=== PATIENT | female | born 1970 | race American Indian/Alaskan Native ===

== ENCOUNTER 2018-03-02 06:13 | Emergency (ER) | payer SELFPAY ==
--- NOTE | 2018-03-02 07:08 | XRay Report ---
FINAL REPORT EXAM: XR CHEST ROUTINE 2V HISTORY: SOB/Dizziness TECHNIQUE: PA and lateral chest radiographs PRIORS: None. FINDINGS: No mediastinal shift. Cardiac silhouette is not enlarged. No pneumothorax, effusion, or focal pulmon richie opacity. No acute skeletal finding. IMPRESSION: No focal pulmonary opacity.
[2018-03-02 07:56] LABS: BUN/Creatinine Ratio 10; Blood Urea Nitrogen 7 mg/dL (7-17); Calcium 9.4 mg/dL (8.4-10.2); Hemolysis Index 72
[2018-03-02 08:24] LABS: Basophils % (Auto) 0.5 % (0.0-1.8); Eosinophils # (Auto) 0.2 K/mm3 (0.0-0.4); Lymphocytes # (Auto) 2.5 K/mm3 (1.2-5.4); Lymphocytes % (Auto) 27.8 % (13.4-35.0); Mean Corpuscular HGB Conc 30 % (30-34); Mean Corpuscular Volume 71 fl (79-97); Monocytes # (Auto) 0.9 K/mm3 (0.0-0.8); Monocytes % (Auto) 9.8 % (0.0-7.3); Platelet Count 378 K/mm3 (140-440); Red Blood Count 4.72 M/mm3 (3.65-5.03); Red Cell Distribution Width 18.2 % (13.2-15.2)
[2018-03-02 08:32] LABS: Hematocrit 33.6 % (30.3-42.9); Hemoglobin 10.1 gm/dl (10.1-14.3)
[2018-03-02] MEDS ORDERED: IBUPROFEN PO ONE (08:52)
[2018-03-02] MEDS ORDERED: TYLENOL PO ONE (08:52)
--- NOTE | 2018-03-02 08:53 | Emergency Department Report ---
ED General Adult HPI - General Chief complaint: Dizziness Stated complaint: DIZZINESS Time Seen by Provider: 03/02/18 07:47 Source: patient Mode of arrival: Ambulatory Limitations: No Limitations - History of Present Illness Initial comments: This is a pleasant 47-year-old female who is not known to this provider previously. The patient does not have a local primary care doctor. She reports that she is not . She reports that she does not take oral contraceptives, that she has not delivered given within the past 6 weeks, and she denies DVT, pulmonary embolus risk factors. The patient presents to the ER today with a complaint of nontraumatic bilateral multiple fingertip tingling, 2 weeks. This is constant, only on the fingerti ps, does not radiate anywhere, does not appear to have exacerbating or liver factors. The patient describes nonspecific diffuse muscular discomfort, including bilateral trapezius, bilateral paracervical muscles, and on her feet. The patient reports that she does not get good sleep, and reports that she feels like she falls asleep occasionally during the day. She denies chest pain, but admits to shortness of breath, feeling fatigued, and malaise. This is been going on for weeks to months. The patient has not had a formal sleep study. The patient denies chest pain, abdominal pain, vomiting, urinary symptoms. Her symptoms have been going on for weeks to months. -: Gradual Location: left, right, upper extremity, lower extremity Severity scale (0 -10): 0 Quality: other Consistency: other Improves with: other Worsens with: other Associated Symptoms: headaches, loss of appetite, malaise, shortness of breath, weakness. denies: confusion, chest pain, cough, diaphoresis, fever/chills, nausea/vomiting, rash, seizure, syncope - Related Data Previous Rx's Medication Instructions Recorded Last Taken Type Acetaminophen [Tylenol Arthritis] 650 mg PO Q6HR PRN #30 tablet.er 03/02/18 Unknown Rx Ibuprofen [Motrin] 600 mg PO Q8H PRN #30 tablet 03/02/18 Unknown Rx Allergies Allergy/AdvReac Type Severity Reaction Status Date / Time No Known Allergies Allergy Unverified 03/02/18 06:31 ED Review of Systems ROS: Stated complaint: DIZZINESS Other details as noted in HPI Constitutional: malaise. denies: fever Eyes: denies: vision change ENT: denies: epistaxis Respiratory: denies: wheezing Cardiovascular: denies: chest pain Gastrointestinal: denies: nausea, vomiting Genitourinary: denies: dysuria Musculoskeletal: arthralgia, myalgia Skin: denies: lesions Neurological: headache. denies: abnormal gait, vertigo Psychiatric: anxiety ED Past Medical Hx - Past Medical History Previous Medical History?: No - Surgical History Past Surgical History?: Yes Additional Surgical History: Tubaligation, tonsilectomy - Social History Smoking Status: Never Smoker Substance Use Type: None - Medications Home Medications: Home Medications Medication Instructions Recorded Confirmed Last Taken Type Acetaminophen [Tylenol Arthritis] 650 mg PO Q6HR PRN #30 tablet.er 03/02/18 Unknown Rx Ibuprofen [Motrin] 600 mg PO Q8H PRN #30 tablet 03/02/18 Unknown Rx ED Physical Exam - General Limitations: No Limitations General appearance: alert, in no apparent distress - Head Head exam: Present: atraumatic, normocephalic - Eye Eye exam: Present: normal appearance, PERRL, EOMI, other (visual acuity intact to finger counting, color perception, reading at a close distance). Absent: nystagmus - ENT ENT exam: Present: normal exam, normal orophraynx, mucous membranes moist, normal external ear exam - Neck Neck exam: Present: normal inspection, full ROM, other (there is no midline cervical spine tenderness. There is reproducible trapezius and paracervical tenderness). Absent: meningismus - Respiratory Respiratory exam: Present: normal lung sounds bilaterally. Absent: respiratory distress - Cardiovascular Cardiovascular Exam: Present: regular rate, normal rhythm, normal heart sounds. Absent: bradycardia, tachycardia, irregular rhythm, systolic murmur, diastolic murmur, rubs, gallop - GI/Abdominal GI/Abdominal exam: Present: soft. Absent: distended, tenderness, guarding, r ebound, rigid, pulsatile mass - Extremities Exam Extremities exam: Present: normal inspection, full ROM, other (2+ pulses noted in the bilateral upper, lower extremities. Compartments soft. No long bony tenderness. The pelvis is stable.). Absent: pedal edema, joint swelling, calf tenderness - Back Exam Back exam: Present: normal inspection, full ROM. Absent: tenderness, CVA tenderness (R), CVA tenderness (L), vertebral tenderness - Neurological Exam Neurological exam: Present: alert, oriented X3, CN II-XII intact, normal gait, other (Extraocular movements intact. Tongue midline. No facial droop. Facial sensation intact to light touch in the V1, V2, V3 distribution bilaterally. 5 and 5 strength in 4 extremities.. Sensation is intact to light touch in 4 extremities.). Absent: motor sensory deficit (sensation intact to light touch, pinch, proprioception, upper, lower extremities) - Psychiatric Psychiatric exam: Present: normal affect, normal mood - Skin Skin exam: Present: warm, dry, intact, normal color. Absent: rash ED Course Vital Signs 03/02/18 03/02/18 06:31 07:48 Temperature 97.5 F L Pulse Rate 72 57 L Respiratory 16 16 Rate Blood Pressure 142/87 Blood Pressure 126/69 [Left] O2 Sat by Pulse 100 99 Oximetry ED Medical Decision Making - Lab Data Result diagrams: 03/02/18 07:30 03/02/18 07:26 Vital Signs 03/02/18 03/02/18 06:31 07:48 Temperature 97.5 F L Pulse Rate 72 57 L Respiratory 16 16 Rate Blood Pressure 142/87 Blood Pressure 126/69 [Left] O2 Sat by Pulse 100 99 Oximetry Lab Results 03/02/18 03/02/18 Range/Units 07:26 07:30 WBC 8.8 (4.5-11.0) K/mm3 RBC 4.72 (3.65-5.03) M/mm3 Hgb 10.1 (10.1-14.3) gm/dl Hct 33.6 (30.3-42.9) % MCV 71 L (79-97) fl MCH 22 L (28-32) pg MCHC 30 (30-34) % RDW 18.2 H (13.2-15.2) % Plt Count 378 (140-440) K/mm3 Lymph % (Auto) 27.8 (13.4-35.0) % [place] % (Auto) 9.8 H (0.0-7.3) % Eos % (Auto) 2.0 (0.0-4.3) % Baso % (Auto) 0.5 (0.0-1.8) % Lymph # 2.5 (1.2-5.4) K/mm3 [place] # 0.9 H (0.0-0.8) K/mm3 Eos # 0.2 (0.0-0.4) K/mm3 Baso # 0.0 (0.0-0.1) K/mm3 Seg Neutrophils % 59.9 (40.0-70.0) % Seg Neutrophils # 5.3 (1.8-7.7) K/mm3 Sodium 137 (137-145) mmol/L Potassium 4.6 (3.6-5.0) mmol/L Chloride 101.2 (98-107) mmol/L Carbon Dioxide 24 (22-30) mmol/L Anion Gap 16 mmol/L BUN 7 (7-17) mg/dL Creatinine 0.7 (0.7-1.2) mg/dL Estimated GFR > 60 ml/min BUN/Creatinine Ratio 10 % Glucose 95 (65-100) mg/dL Calcium 9.4 (8.4-10.2) mg/dL - EKG Data -: EKG Interpreted by [facility] EKG shows normal: sinus rhythm, axis, intervals, QRS complexes, ST-T waves - EKG Data When compared to previous EKG there are: previous EKG unavailable Interpretation: normal EKG - Medical Decision Making Differential diagnosis, including but not limited to: Nonspecific myalgias, peripheral neuropathy, sleep apnea Assessment and plan: 47-year-old female who reports no pulmonary embolus or DVT risk factors, low risk by well's criteria, perc negative with nonspecific peripheral sensory dysesthesias, with no focal pulmonary findings, no tachycardia, no hypoxemia. EKG morphologically unremarkable, neurologic examination unremarkable, as ago examination unremarkable, laboratory studies unremarkable, may have a component of undiagnosed obstructive sleep apnea. Counseled the patient to modify diet and lifestyle, pursue weight loss strategies, improved dietary intake, and to follow up with outpatient primary care doctor. May have undiagnosed sleep apnea, may have a component of fibromya lgia. Given that symptoms have been present for weeks, and the aforementioned findings, the patient does not appear to have an objectively demonstrated decompensation at this time, there does not appear to be an emergent medical condition at this time, the patient is medically suitable to follow up with outpatient primary care doctor and/or sleep specialist. Critical care attestation.: If time is entered above; I have spent that time in minutes in the direct care of this critically ill patient, excluding procedure time. ED Disposition Clinical Impression: Bilateral finger numbness Disposition: DC-01 TO HOME OR SELFCARE Is pt being admited?: No Does the pt Need Aspirin: No Condition: Stable Instructions: Snoring (ED), Leg Cramps (ED) Additional Instructions: As we discussed, patient may have undiagnosed sleep apnea. Sleep apnea is a condition with the patient will stop breathing during sleep. The single most effective intervention for this would be weight loss. Patient should participate in physical activity as she can tolerate, and attempts physical activity 3-4 days per week as tolerated. In addition, patient would benefit from diet and last modification, including modification of what the patient consumes. I recommend the patient consumed fruits, fibers, green leafy vegetables, and discontinue consumption of soda, sugary drinks, simple carbohydrates such as bread, starches. Follow-up with the primary care doctor within the next month. Follow up with a sleep specialist within the next month. Dr. Humphries is a local sleep specialist Please return to the ER right away with new pain, worsened pain, migration of pain, productive vomiting, change in mental status, confusion, inability to speak, inability to breathe. Prescriptions: Acetaminophen [Tylenol Arthritis] 650 mg PO Q6HR PRN #30 tablet.er PRN Reason: Pain Ibuprofen [Motrin] 600 mg PO Q8H PRN #30 tablet PRN Reason: Pain Referrals: EVON HUMPHRIES MD [Staff Physician] - 3-5 Days [facility] [Provider Group] - 3-5 Days
[2018-03-02 09:55] VITALS: BP 137/84
== END 2018-03-02 09:54 | disposition home or self-care (01) ==
LOC: ED 06:13
DX: R20.2 Paresthesia of skin (principal); R51 Headache; R63.0 Anorexia
CPT/HCPCS: 36415; 71046; 80048; 85025; 93005; 93010

== ENCOUNTER 2018-05-19 11:00 | Emergency (ER) | payer SELFPAY ==
--- NOTE | 2018-05-19 11:12 | Emergency Department Report ---
Blank Doc - Documentation Documentation: 47 y o female presents to Ed with elevated pressure with headaches, states no diagnosis but the past 2 weeks her BP has been elevated and highest as 181/90 basic labs ordered needs PCP referal for BP managment ACC jordynal
[2018-05-19] MEDS ORDERED: TORADOL IV ONE (11:38)
[2018-05-19] MEDS ORDERED: NORMODYNE IV ONE (11:38)
[2018-05-19 11:45] LABS: Basophils # (Auto) 0.1 K/mm3 (0.0-0.1); Basophils % (Auto) 0.8 % (0.0-1.8); Eosinophils # (Auto) 0.1 K/mm3 (0.0-0.4); Eosinophils % (Auto) 1.9 % (0.0-4.3); Hematocrit 31.6 % (30.3-42.9); Hemoglobin 9.7 gm/dl (10.1-14.3); Lymphocytes # (Auto) 1.8 K/mm3 (1.2-5.4); Lymphocytes % (Auto) 27.4 % (13.4-35.0); Mean Corpuscular HGB Conc 31 % (30-34); Mean Corpuscular Volume 71 fl (79-97); Monocytes # (Auto) 0.7 K/mm3 (0.0-0.8); Monocytes % (Auto) 10.8 % (0.0-7.3); Platelet Count 350 K/mm3 (140-440); Red Blood Count 4.46 M/mm3 (3.65-5.03); Red Cell Distribution Width 17.9 % (13.2-15.2)
[2018-05-19 11:57] LABS: BUN/Creatinine Ratio 9; Blood Urea Nitrogen 6 mg/dL (7-17); Calcium 9.3 mg/dL (8.4-10.2); Hemolysis Index 0
[2018-05-19 12:16] VITALS: BP 106/79
--- NOTE | 2018-05-19 12:24 | Emergency Department Report ---
ED General Adult HPI - General Chief complaint: High BP Stated complaint: BP HIGH Time Seen by Provider: 05/19/18 11:07 Source: patient Mode of arrival: Ambulatory Limitations: No Limitations - History of Present Illness Initial comments: Patient is a 47-year-old [place] female who is complaining of 2 weeks of headache. Patient's has a history of hypertension and is been noncompliant with her meds. Patient states her blood pressure last 2 weeks has been between 150 170 systolic. Patient states she has blurred vision and squeezing throbbing headache is diffuse. Patient denies any nausea vomiting chest pain shortness of breath or focal or neurological deficit. Patient states the headache has been constant for the last 2 weeks. Severity scale (0 -10): 6 - Related Data Previous Rx's Medication Instructions Recorded Last Taken Type Acetaminophen [Tylenol Arthritis] 650 mg PO Q6HR PRN #30 tablet.er 03/02/18 Unknown Rx Ibuprofen [Motrin] 600 mg PO Q8H PRN #30 tablet 03/02/18 Unknown Rx Amlodipine Besylate [Norvasc] 5 mg PO DAILY #30 tablet 05/19/18 Unknown Rx Amoxicillin/Potassium Clav 1 each PO BID #14 tablet 05/19/18 Unknown Rx [Augmentin 875-125 Tablet] Fluticasone [Flonase] 1 spray NS QDAY #1 bottle 05/19/18 Unknown Rx Ibuprofen [Motrin] 600 mg PO Q8H PRN #20 tablet 05/19/18 Unknown Rx traMADol [Ultram] 50 mg PO Q6HR PRN #10 tablet 05/19/18 Unknown Rx Allergies Allergy/AdvReac Type Severity Reaction Status Date / Time No Known Allergies Allergy Verified 05/19/18 11:06 ED Review of Systems ROS: Stated complaint: BP HIGH Other details as noted in HPI Comment: All other systems reviewed and negative ED Past Medical Hx - Past Medical History Previous Medical History?: No - Surgical History Additional Surgical History: Tubaligation, tonsilectomy - Social History Smoking Status: Never Smoker Substance Use Type: None - Medications Home Medications: Home Medications Medication Instructions Recorded Confirmed Last Taken Type Acetaminophen [Tylenol Arthritis] 650 mg PO Q6HR PRN #30 tablet.er 03/02/18 Unknown Rx Ibuprofen [Motrin] 600 mg PO Q8H PRN #30 tablet 03/02/18 Unknown Rx Amlodipine Besylate [Norvasc] 5 mg PO DAILY #30 tablet 05/19/18 Unknown Rx Amoxicillin/Potassium Clav 1 each PO BID #14 tablet 05/19/18 Unknown Rx [Augmentin 875-125 Tablet] Fluticasone [Flonase] 1 spray NS QDAY #1 bottle 05/19/18 Unknown Rx Ibuprofen [Motrin] 600 mg PO Q8H PRN #20 tablet 05/19/18 Unknown Rx traMADol [Ultram] 50 mg PO Q6HR PRN #10 tablet 05/19/18 Unknown Rx ED Physical Exam - General Limitations: No Limitations General appearance: alert, in no apparent distress - Head Head exam: Present: atraumatic, normocephalic - Eye Eye exam: Present: normal appearance - ENT ENT exam: Present: mucous membranes moist - Neck Neck exam: Present: normal inspection - Respiratory Respiratory exam: Present: normal lung sounds bilaterally. Absent: respiratory distress, wheezes, rales, rhonchi - Cardiovascular Cardiovascular Exam: Present: regular rate, normal rhythm. Absent: systolic murmur, diastolic murmur, rubs, gallop - GI/Abdominal GI/Abdominal exam: Present: soft, normal bowel sounds. Absent: distended, tenderness, guarding, rebound - Extremities Exam Extremities exam: Present: normal inspection - Back Exam Back exam: Present: normal inspection - Neurological Exam Neurological exam: Present: alert, oriented X3 - Psychiatric Psychiatric exam: Present: normal affect, normal mood - Skin Skin exam: Present: warm, dry, intact, normal color. Absent: rash ED Course Vital Signs 05/19/18 05/19/18 05/19/18 11:06 12:14 12:15 Temperature 97.9 F Pulse Rate 94 H 67 Respiratory 16 18 Rate Blood Pressure 160/94 106/79 O2 Sat by Pulse 100 Oximetry 05/19/18 12:45 Temperature Pulse Rate Respiratory 18 Rate Blood Pressure O2 Sat by Pulse Oximetry ED Medical Decision Making - Lab Data Result diagrams: 05/19/18 11:35 05/19/18 11:35 Lab Results 05/19/18 05/19/18 Range/Units 11:35 11:35 WBC 6.5 (4.5-11.0) K/mm3 RBC 4.46 (3.65-5.03) M/mm3 Hgb 9.7 L (10.1-14.3) gm/dl Hct 31.6 (30.3-42.9) % MCV 71 L (79-97) fl MCH 22 L (28-32) pg MCHC 31 (30-34) % RDW 17.9 H (13.2-15.2) % Plt Count 350 (140-440) K/mm3 Lymph % (Auto) 27.4 (13.4-35.0) % [place] % (Auto) 10.8 H (0.0-7.3) % Eos % (Auto) 1.9 (0.0-4.3) % Baso % (Auto) 0.8 (0.0-1.8) % Lymph # 1.8 (1.2-5.4) K/mm3 [place] # 0.7 (0.0-0.8) K/mm3 Eos # 0.1 (0.0-0.4) K/mm3 Baso # 0.1 (0.0-0.1) K/mm3 Seg Neutrophils % 59.1 (40.0-70.0) % Seg Neutrophils # 3.8 (1.8-7.7) K/mm3 Sodium 141 (137-145) mmol/L Potassium 4.2 (3.6-5.0) mmol/L Chloride 102.6 (98-107) mmol/L Carbon Dioxide 27 (22-30) mmol/L Anion Gap 16 mmol/L BUN 6 L (7-17) mg/dL Creatinine 0.7 (0.7-1.2) mg/dL Estimated GFR > 60 ml/min BUN/Creatinine Ratio 9 % Glucose 94 (65-100) mg/dL Calcium 9.3 (8.4-10.2) mg/dL Troponin T < 0.010 (0.00-0.029) ng/mL - Radiology Data [facility] [address] [place] [address] Cat Scan Report Signed Patient: IAM BERRY MR#: [id number] : 1970 Acct:[id number] Age/Sex: 47 / F ADM Date: 05/19/18 Loc: ED Attending Dr: Ordering Physician: ESPERANZA DONNELLY MD Date of Service: 05/19/18 Procedure(s): CT head/brain wo con Accession Number(s): [id number] cc: ESPERANZA DONNELLY MD PROCEDURE: CT HEAD/BRAIN WO CON TECHNIQUE: Computerized tomography of the head was performed without contrast material. Coronal and sagittal reformatted images were provided. CT DOSE LENGTH PRODUCT: 1407.79 mGy-cm. HISTORY: Hypertension. Headache. COMPARISONS: None currently available. FINDINGS: There is no evidence for acute ischemia. There is no hemorrhage. There is no midline shift. There is no hydrocephalus. There is no mass. Age appropriate wilson-white matter attenuation is noted. There is no calvarial fracture. The temporal bones demonstrate aerated mastoid air cells. The middle ears appear unremarkable. Partially calcified and partially imaged lesion in the right maxillary sinus is indeterminate. Globes are intact. IMPRESSION: * No acute intracranial findings. * Nonspecific lesion in the right maxillary sinus. Differential diagnosis does include inspissated mucus. This document is electronically signed by Germán Flood MD., May 19 2018 01:59:59 PM ET Transcribed By: TYM Dictated By: GERMÁN FLOOD MD Electronically Authenticated By: GERMÁN FLOOD MD Signed Date/Time: 05/19/18 1402 DD/ 1302 TD/TT: 05/19/18 1302 - Medical Decision Making Patient was given meds for her headache. Patient also had labetalol ordered for blood pressure. Before that if this was given pressure was rechecked and had normalized. Nurses to have had a conversation with the patient regarding stress and the patient states she has several autistic children as well as a at home. Patient states she is under considerable amount of stress. This likely is contributing to her elevated blood pressure and headache. The patient does state that she does have some sinus tenderness. Patient states she is chronically congested but this is worsened lately. Patient does have evidence of systems sinus mucous on her CT. Patient be given meds for symptomatic relief. Critical care attestation.: If time is entered above; I have spent that time in minutes in the direct care of this critically ill patient, excluding procedure time. ED Disposition Clinical Impression: Hypertensive urgency, Stress, Sinus pain, Tension headache Disposition: DC-01 TO HOME OR SELFCARE Is pt being admited?: No Does the pt Need Aspirin: No Condition: Stable Instructions: Hypertension (ED), Sinusitis (ED) Referrals: SIVAN YUSUF MD [Primary Care Provider] - 3-5 Days Time of Disposition: 14:23
--- NOTE | 2018-05-19 14:02 | Cat Scan Report ---
PROCEDURE: CT HEAD/BRAIN WO CON TECHNIQUE: Computerized tomography of the head was performed without contrast material. Coronal and s agittal reformatted images were provided. CT DOSE LENGTH PRODUCT: 1407.79 mGy-cm. HISTORY: Hypertension. Headache. COMPARISONS: None currently available. FINDINGS: There is no evidence for acute ischemia. There is no hemorrhage. There is no midline shift. There is no hydrocephalus. There is no mass. Age appropriate wilson-white matter attenuation is noted. There is no calvarial fracture. The temporal bones demonstrate aerated mastoid air cells. The middle ears appear unremarkable. Partially calcified and partially imaged lesion in the right maxillary sinus is indeterminate. Globes are intact. IMPRESSION: * No acute intracranial findings. * Nonspecific lesion in the right maxillary sinus. Differential diagnosis does include inspissated m ucus. This document is electronically signed by Germán Coughlin MD., May 19 2018 01:59:59 PM ET
== END 2018-05-19 14:36 | disposition home or self-care (01) ==
LOC: ED 11:00
DX: G44.209 Tension-type headache, unspecified, not intractable (principal); I10 Essential (primary) hypertension; J34.89 Other specified disorders of nose and nasal sinuses; Z98.51 Tubal ligation status
CPT/HCPCS: 36415; 70450; 80048; 84484; 85025; 96374; 99284; J1885

== ENCOUNTER 2018-10-16 08:43 | Emergency (ER) | payer SELFPAY ==
--- NOTE | 2018-10-16 11:15 | Emergency Department Report ---
Chief Complaint: Pain General Stated Complaint: PAIN RT AXILLA Time Seen by Provider: 10/16/18 11:05 - HPI History of Present Illness: Ms. Hughes presents with tender axillary lymph node on right side. No indication of acute emergent condition. She's had normal cardiac evaluation here in the past this year. Recommended breast exams and mammograms. Medical screening exam performed. - Exam Vital Signs: Vital Signs 10/16/18 09:38 Temperature 98.5 F Pulse Rate 80 Respiratory 20 Rate Blood Pressure 121/73 O2 Sat by Pulse 98 Oximetry MSE screening note: Focused history and physical exam performed. Due to findings the following was ordered: ED Disposition for MSE Clinical Impression: Axillary lymphadenopathy Disposition: Z-07 MED SCREENING EXAM-LEFT Is pt being admited?: No Does the pt Need Aspirin: No Condition: Stable Additional Instructions: Please obtain a mammogram as discussed. You have an inflamed lymph node. Referrals: SIVAN YUSUF MD [Primary Care Provider] - 3-5 Days
[2018-10-16 11:18] VITALS: BP 121/70
== END 2018-10-16 11:17 | disposition left against medical advice (07) ==
LOC: ED 08:43
DX: R59.0 Localized enlarged lymph nodes (principal)
CPT/HCPCS: 99281

== ENCOUNTER 2019-01-30 07:17 | Emergency (ER) | payer SELFPAY ==
[2019-01-30 07:22] VITALS: BP 136/85
[2019-01-30 08:12] LABS: Basophils % (Auto) 0.2 % (0.0-1.8); Eosinophils # (Auto) 0.1 K/mm3 (0.0-0.4); Eosinophils % (Auto) 0.9 % (0.0-4.3); Hematocrit 35.3 % (30.3-42.9); Hemoglobin 10.8 gm/dl (10.1-14.3); Lymphocytes # (Auto) 0.9 K/mm3 (1.2-5.4); Lymphocytes % (Auto) 14.7 % (13.4-35.0); Mean Corpuscular HGB Conc 31 % (30-34); Mean Corpuscular Volume 73 fl (79-97); Monocytes # (Auto) 0.5 K/mm3 (0.0-0.8); Monocytes % (Auto) 8.3 % (0.0-7.3); Platelet Count 374 K/mm3 (140-440); Red Blood Count 4.87 M/mm3 (3.65-5.03)
[2019-01-30] MEDS ORDERED: LIDOCAINE VISCOUS 2% 15 ML ORAL LIQD PO ONE (08:24)
[2019-01-30] MEDS ORDERED: ALUM-MAG HYDROXIDE-SIMETHICONE 200-200-20MG/5ML ORAL LIQD 30 ML PO ONE (08:24)
[2019-01-30] MEDS ORDERED: ONDANSETRON 4 MG ODT TAB PO ONE (08:24)
[2019-01-30] MEDS ORDERED: KETOROLAC 60 MG/2 ML INJ IM ONE (08:24)
[2019-01-30] MEDS ORDERED: DICYCLOMINE 20 MG TAB PO ONE (08:24)
--- NOTE | 2019-01-30 08:24 | Emergency Department Report ---
ED Abdominal Pain HPI - General Chief Complaint: Abdominal Pain Stated Complaint: N/V/DIARRHEA/ABD PAIN Time Seen by Provider: 01/30/19 08:23 Source: patient, family Mode of arrival: Ambulatory Limitations: No Limitations - History of Present Illness Initial Comments: This is a 48-year-old female here report that she is having abdominal pain with some nausea and vomiting. She denies any diarrhea. She said this started last patient reports that she was treated by Dr. Lr for H. pylori which she finished antibiotic 01/12/2019. She says the pain is similar to the pain that she was having when she had the prior tests and further that she had H. pylori. Pain is located to the epigastric area and burning. Nothing makes it better or worse. No medication taken prior to coming to the hospital. Denies any blood in vomit. Denies any back pain or any urinary symptoms. MD Complaint: abdominal pain -: Last night Location: epigastric Radiation: none Migration to: no migration Severity: moderate Severity scale (0 -10): 6 Quality: burning Consistency: constant Improves With: nothing Worsens With: nothing Context: other (unknown) Associated Symptoms: nausea, vomiting. denies: diarrhea, fever, chills, constipation, dysuria, hematemesis, hematochezia, melena, hematuria, anorexia, syncope - Related Data LMP (females 10-50): other (tubal ligation) Previous Rx's Medication Instructions Recorded Last Taken Type Acetaminophen [Tylenol Arthritis] 650 mg PO Q6HR PRN #30 tablet.er 03/02/18 Unknown Rx Ibuprofen [Motrin] 600 mg PO Q8H PRN #30 tablet 03/02/18 Unknown Rx Amlodipine Besylate [Norvasc] 5 mg PO DAILY #30 tablet 05/19/18 Unknown Rx Amoxicillin/Potassium Clav 1 each PO BID #14 tablet 05/19/18 Unknown Rx [Augmentin 875-125 Tablet] Fluticasone [Flonase] 1 spray NS QDAY #1 bottle 05/19/18 Unknown Rx Ibuprofen [Motrin] 600 mg PO Q8H PRN #20 tablet 05/19/18 Unknown Rx traMADoL [Ultram] 50 mg PO Q6HR PRN #10 tablet 05/19/18 Unknown Rx Dicyclomine [Bentyl] 40 mg PO QID 3 Days #12 tablet 01/30/19 Unknown Rx Famotidine [Pepcid] 20 mg PO BID 6 Days #12 tablet 01/30/19 Unknown Rx Ondansetron [Zofran ODT TAB] 8 mg PO Q8HR PRN #12 tab.rapdis 01/30/19 Unknown Rx Allergies Allergy/AdvReac Type Severity Reaction Status Date / Time No Known Allergies Allergy Verified 01/30/19 07:21 ED Review of Systems ROS: Stated complaint: N/V/DIARRHEA/ABD PAIN Other details as noted in HPI Constitutional: denies: chills, fever ENT: denies: throat pain, congestion Respiratory: denies: cough, shortness of breath, wheezing Cardiovascular: denies: chest pain, palpitations, dyspnea on exertion, edema, syncope Gastrointestinal: abdominal pain, nausea, vomiting. denies: diarrhea, constipation, hematemesis, melena, hematochezia Genitourinary: denies: urgency, dysuria, frequency, hematuria, discharge, abnormal menses, dyspareunia Musculoskeletal: denies: back pain, joint swelling, arthralgia, myalgia Skin: denies: rash Neurological: denies: headache ED Past Medical Hx - Past Medical History Previous Medical History?: Yes Hx Hypertension: Yes Additional medical history: h.pylori - Surgical History Past Surgical History?: Yes Additional Surgical History: Tubaligation, tonsilectomy - Family History Family history: hypertension - Social History Smoking Status: Never Smoker Substance Use Type: None - Medications Home Medications: Home Medications Medication Instructions Recorded Confirmed Last Taken Type Acetaminophen [Tylenol Arthritis] 650 mg PO Q6HR PRN #30 tablet.er 03/02/18 Unknown Rx Ibuprofen [Motrin] 600 mg PO Q8H PRN #30 tablet 03/02/18 Unknown Rx Amlodipine Besylate [Norvasc] 5 mg PO DAILY #30 tablet 05/19/18 Unknown Rx Amoxicillin/Potassium Clav 1 each PO BID #14 tablet 05/19/18 Unknown Rx [Augmentin 875-125 Tablet] Fluticasone [Flonase] 1 spray NS QDAY #1 bottle 05/19/18 Unknown Rx Ibuprofen [Motrin] 600 mg PO Q8H PRN #20 tablet 05/19/18 Unknown Rx traMADoL [Ultram] 50 mg PO Q6HR PRN #10 tablet 05/19/18 Unknown Rx Dicyclomine [Bentyl] 40 mg PO QID 3 Days #12 tablet 01/30/19 Unknown Rx Famotidine [Pepcid] 20 mg PO BID 6 Days #12 tablet 01/30/19 Unknown Rx Ondansetron [Zofran ODT TAB] 8 mg PO Q8HR PRN #12 tab.rapdis 01/30/19 Unknown Rx ED Physical Exam - General Limitations: No Limitations General appearance: alert, in no apparent distress - Eye Eye exam: Present: normal appearance, PERRL, EOMI Pupils: Present: normal accommodation - ENT ENT exam: Present: normal exam, normal orophraynx, mucous membranes moist - Neck Neck exam: Present: normal inspection, full ROM. Absent: tenderness - Respiratory Respiratory exam: Present: normal lung sounds bilaterally. Absent: respiratory distress, chest wall tenderness - Cardiovascular Cardiovascular Exam: Present: regular rate, normal rhythm, normal heart sounds - GI/Abdominal GI/Abdominal exam: Present: soft, normal bowel sounds. Absent: distended, tenderness, guarding, rebound, rigid, organomegaly - Extremities Exam Extremities exam: Present: normal inspection, full ROM, normal capillary refill, other (no clubbing, cyanosis or edema. +2 pulses). Absent: tenderness, pedal edema, joint swelling - Back Exam Back exam: Present: normal inspection, full ROM, other (Ambulates without any difficulties). Absent: tenderness, CVA tenderness (R), CVA tenderness (L), muscle spasm, paraspinal tenderness, vertebral tenderness - Neurological Exam Neurological exam: Present: alert, oriented X3, normal gait - Psychiatric Psychiatric exam: Present: normal affect, normal mood - Skin Skin exam: Present: warm, dry, intact, normal color. Absent: rash ED Course Vital Signs 01/30/19 07:20 Temperature 98.6 F Pulse Rate 98 H Respiratory 18 Rate Blood Pressure 136/85 [Right] - Reevaluation(s) Reevaluation #1: 01/30/19 09:40 Patient given Maalox 30 mL, lidocaine 15 mL, Zofran 8 mg ODT, Toradol 30 mg IM and Bentyl 40 mg by mouth for abdominal pain and upper reevaluation abdomen her remained nontender to palpate and she says she feels a lot better and she is in no pain. Labs are stable ED Medical Decision Making - Lab Data Result diagrams: 01/30/19 07:41 01/30/19 07:41 Lab Results 01/30/19 01/30/19 01/30/19 Range/Units 07:41 07:41 07:41 WBC 5.9 (4.5-11.0) K/mm3 RBC 4.87 (3.65-5.03) M/mm3 Hgb 10.8 (10.1-14.3) gm/dl Hct 35.3 (30.3-42.9) % MCV 73 L (79-97) fl MCH 22 L (28-32) pg MCHC 31 (30-34) % RDW 18.0 H (13.2-15.2) % Plt Count 374 (140-440) K/mm3 Lymph % (Auto) 14.7 (13.4-35.0) % Beckham % (Auto) 8.3 H (0.0-7.3) % Eos % (Auto) 0.9 (0.0-4.3) % Baso % (Auto) 0.2 (0.0-1.8) % Lymph # 0.9 L (1.2-5.4) K/mm3 Beckham # 0.5 (0.0-0.8) K/mm3 Eos # 0.1 (0.0-0.4) K/mm3 Baso # 0.0 (0.0-0.1) K/mm3 Seg Neutrophils % 75.9 H (40.0-70.0) % Seg Neutrophils # 4.5 (1.8-7.7) K/mm3 Sodium 141 (137-145) mmol/L Potassium 4.0 (3.6-5.0) mmol/L Chloride 101.4 (98-107) mmol/L Carbon Dioxide 23 (22-30) mmol/L Anion Gap 21 mmol/L BUN 7 (7-17) mg/dL Creatinine 0.9 (0.7-1.2) mg/dL Estimated GFR > 60 ml/min BUN/Creatinine Ratio 8 % Glucose 101 H (65-100) mg/dL Calcium 9.8 (8.4-10.2) mg/dL Total Bilirubin 0.70 (0.1-1.2) mg/dL AST 15 (5-40) units/L ALT 13 (7-56) units/L Alkaline Phosphatase 59 (35-129) units/L Total Protein 7.6 (6.3-8.2) g/dL Albumin 4.3 (3.9-5) g/dL Albumin/Globulin Ratio 1.3 % Lipase 14 (13-60) units/L HCG, Qual (Negative) Urine Color Yellow (Yellow) Urine Turbidity Clear (Clear) Urine pH 6.0 (5.0-7.0) Ur Specific [place] 1.015 (1.003-1.030) Urine Protein 30 mg/dl (Negative) mg/dL Urine Glucose (UA) Negative (Negative) mg/dL Urine Ketones Negative (Negative) mg/dL Urine Blood Small A (Negative) Urine Nitrite Negative (Negative) Ur Reducing Substances Not Reportable Urine Bilirubin Negative (Negative) Urine Ictotest Not Reportable Urine Urobilinogen < 0.2 (<2.0) mg/dL Ur Leukocyte Esterase Negative (Negative) Urine WBC (Auto) 1.0 (0.0-6.0) /HPF Urine RBC (Auto) 3.0 (0.0-6.0) /HPF U Epithel Cells (Auto) < 1.0 (0-13.0) /HPF Urine Bacteria (Auto) 1+ (Negative) /HPF Urine Mucus 2+ /HPF 01/30/19 Range/Units 07:41 WBC (4.5-11.0) K/mm3 RBC (3.65-5.03) M/mm3 Hgb (10.1-14.3) gm/dl Hct (30.3-42.9) % MCV (79-97) fl MCH (28-32) pg MCHC (30-34) % RDW (13.2-15.2) % Plt Count (140-440) K/mm3 Lymph % (Auto) (13.4-35.0) % Beckham % (Auto) (0.0-7.3) % Eos % (Auto) (0.0-4.3) % Baso % (Auto) (0.0-1.8) % Lymph # (1.2-5.4) K/mm3 Beckham # (0.0-0.8) K/mm3 Eos # (0.0-0.4) K/mm3 Baso # (0.0-0.1) K/mm3 Seg Neutrophils % (40.0-70.0) % Seg Neutrophils # (1.8-7.7) K/mm3 Sodium (137-145) mmol/L Potassium (3.6-5.0) mmol/L Chloride (98-107) mmol/L Carbon Dioxide (22-30) mmol/L Anion Gap mmol/L BUN (7-17) mg/dL Creatinine (0.7-1.2) mg/dL Estimated GFR ml/min BUN/Creatinine Ratio % Glucose (65-100) mg/dL Calcium (8.4-10.2) mg/dL Total Bilirubin (0.1-1.2) mg/dL AST (5-40) units/L ALT (7-56) units/L Alkaline Phosphatase (35-129) units/L Total Protein (6.3-8.2) g/dL Albumin (3.9-5) g/dL Albumin/Globulin Ratio % Lipase (13-60) units/L HCG, Qual Negative (Negative) Urine Color (Yellow) Urine Turbidity (Clear) Urine pH (5.0-7.0) Ur Specific [place] (1.003-1.030) Urine Protein (Negative) mg/dL Urine Glucose (UA) (Negative) mg/dL Urine Ketones (Negative) mg/dL Urine Blood (Negative) Urine Nitrite (Negative) Ur Reducing Substances Urine Bilirubin (Negative) Urine Ictotest Urine Urobilinogen (<2.0) mg/dL Ur Leukocyte Esterase (Negative) Urine WBC (Auto) (0.0-6.0) /HPF Urine RBC (Auto) (0.0-6.0) /HPF U Epithel Cells (Auto) (0-13.0) /HPF Urine Bacteria (Auto) (Negative) /HPF Urine Mucus /HPF Urine culture sent - Medical Decision Making This is a 48-year-old female here report that she has been having abdominal pain with nausea and vomiting since yesterday. Recently treated for H. pylori by her primary care and reports that she has a same pain that she did when she had H. pylori. Patient given medication in emergency room and she is able to tolerate oral liquids. Her pain has subsided and she states that she feels better. Lab work reviewed and stable and I discussed diagnosis, treatment plan and laboratory patient's voice understanding. I discussed the patient that she needs to follow-up with her primary care in 2 days and also I will refer her to gastroenterology for further evaluation. Patient discharged home prescription for Zofran, Phenergan and Pepcid Critical care attestation.: If time is entered above; I have spent that time in minutes in the direct care of this critically ill patient, excluding procedure time. ED Disposition Clinical Impression: Abdominal pain Qualifiers: Abdominal location: epigastric Qualified Code(s): R10.13 - Epigastric pain Nausea & vomiting Qualifiers: Vomiting type: unspecified Vomiting Intractability: non-intractable Qualified Code(s): R11.2 - Nausea with vomiting, unspecified Disposition: DC-01 TO HOME OR SELFCARE Is pt being admited?: No Does the pt Need Aspirin: No Condition: Stable Instructions: Abdominal Pain (ED), Acute Nausea and Vomiting (ED) Additional Instructions: These follow-up with Dr. Lr in 2 days. Please see referral to supervisor rose grading for possible endoscope for your stomach. Increase her fluid intake and also start diet such as bananas, rice, applesauce and toast and advance as tolerated. If his symptoms worsens, return to the emergency room Take medication as prescribed Referrals: VIOLETTE LR MD [Primary Care Provider] - 02/01/19 [facility] [Provider Group] - 02/01/19 Forms: Work/School Release Form(ED)
[2019-01-30 08:34] LABS: Alanine Aminotransferase 13 units/L (7-56); Albumin 4.3 g/dL (3.9-5); BUN/Creatinine Ratio 8; Blood Urea Nitrogen 7 mg/dL (7-17); Calcium 9.8 mg/dL (8.4-10.2); Hemolysis Index 1
[2019-01-30 08:47] LABS: Bacteria,Urine 1+ /HPF (Negative); Mucus,Urine 2+ /HPF
[2019-01-30 09:14] LABS: Bilirubin,Urine Negative (Negative); Color,Urine Yellow (Yellow)
[2019-01-30 09:15] LABS: Blood,Urine Small (Negative); Urobilinogen,Urine < 0.2 mg/dL (<2.0)
== END 2019-01-30 10:45 | disposition home or self-care (01) ==
LOC: ED 07:17
DX: R10.9 Unspecified abdominal pain (principal); R11.2 Nausea with vomiting, unspecified; I10 Essential (primary) hypertension; Z98.51 Tubal ligation status; Z90.89 Acquired absence of other organs; Z79.899 Other long term (current) drug therapy
CPT/HCPCS: 36415; 80053; 81001; 83690; 84703; 85025; 87086; 96372; 99283; J1885; Q0162

== ENCOUNTER 2020-08-28 13:43 | Emergency (ER) | payer SELFPAY ==
[2020-08-28] MEDS ORDERED: ACETAMINOPHEN 500 MG TAB PO ONE (18:07)
--- NOTE | 2020-08-28 18:11 | Emergency Department Report ---
ED General Adult HPI - General Chief complaint: Extremity Problem,Nontraumatic Stated complaint: SEVERE PAIN LT TOTAL LEG TO FOOT Time Seen by Provider: 08/28/20 17:58 Source: patient Mode of arrival: Ambulatory Limitations: No Limitations - History of Present Illness Initial comments: 49-year-old female patient with history of hypertension presents to the emergency department with complaints of left lower extremity pain starting 5 days ago. Patient states the pain is primarily localized to the proximal left thigh/left inguinal area as well as the lateral aspect of the left lower leg. States she has experienced these symptoms on previous occasions intermittently to a limited extent, but symptoms have been more severe and persistent over the last 5 days. No recent fall, trauma, or injury. Patient states she has been engaging in more strenuous physical activity than usual due to working on her feet. No known history of venous thromboembolism. No medications prior to arrival. Denies fever, chills, chest pain, shortness of breath, palpitations, syncope, back pain. Denies all other complaints at this time. Severity scale (0 -10): 10 - Related Data Previous Rx's Medication Instructions Recorded Last Taken Type Acetaminophen [Tylenol Arthritis] 650 mg PO Q6HR PRN #30 tablet.er 03/02/18 Unknown Rx Ibuprofen [Motrin] 600 mg PO Q8H PRN #30 tablet 03/02/18 Unknown Rx Amlodipine Besylate [Norvasc] 5 mg PO DAILY #30 tablet 05/19/18 Unknown Rx Amoxicillin/Potassium Clav 1 each PO BID #14 tablet 05/19/18 Unknown Rx [Augmentin 875-125 Tablet] Fluticasone [Flonase] 1 spray NS QDAY #1 bottle 05/19/18 Unknown Rx Ibuprofen [Motrin] 600 mg PO Q8H PRN #20 tablet 05/19/18 Unknown Rx traMADoL [Ultram] 50 mg PO Q6HR PRN #10 tablet 05/19/18 Unknown Rx Dicyclomine [Bentyl] 40 mg PO QID 3 Days #12 tablet 01/30/19 Unknown Rx Famotidine [Pepcid] 20 mg PO BID 6 Days #12 tablet 01/30/19 Unknown Rx Ondansetron [Zofran ODT TAB] 8 mg PO Q8HR PRN #12 tab.rapdis 01/30/19 Unknown Rx Allergies Allergy/AdvReac Type Severity Reaction Status Date / Time No Known Allergies Allergy Verified 01/30/19 07:21 ED Review of Systems ROS: Stated complaint: SEVERE PAIN LT TOTAL LEG TO FOOT Other details as noted in HPI Other: GENERAL: Negative for fever, chills, weight change, anorexia, fatigue. ENT: Negative for ear pain, difficulty hearing, sore throat, nasal congestion, epistaxis. CARDIOVASCULAR: Negative for chest pain, palpitations, lower extremity swelling. PULMONARY: Negative for cough, dyspnea, wheezing, orthopnea, cyanosis. GASTROINTESTINAL: Negative for abdominal pain, nausea, vomiting, diarrhea, constipation. MUSCULOSKELETAL: Positive for leg pain NEUROLOGICAL: Negative for headache, seizure, syncope, paresthesias, weakness. INTEGUMENTARY: Negative for erythema, rash, diaphoresis, laceration, ecchymosis. HEMATOLOGICAL: Negative for hemoptysis, hematemesis, hematochezia, hematuria. PSYCHIATRIC: Negative for hallucinations, suicidal ideation, homicidal ideation, anxiety, depression. ED Past Medical Hx - Past Medical History Previous Medical History?: Yes Hx Hypertension: Yes Additional medical history: h.pylori - Surgical History Past Surgical History?: Yes Additional Surgical History: Tubaligation, tonsilectomy - Social History Smoking Status: Never Smoker Substance Use Type: None - Medications Home Medications: Home Medications Medication Instructions Recorded Confirmed Last Taken Type Acetaminophen [Tylenol Arthritis] 650 mg PO Q6HR PRN #30 tablet.er 03/02/18 Unknown Rx Ibuprofen [Motrin] 600 mg PO Q8H PRN #30 tablet 03/02/18 Unknown Rx Amlodipine Besylate [Norvasc] 5 mg PO DAILY #30 tablet 05/19/18 Unknown Rx Amoxicillin/Potassium Clav 1 each PO BID #14 tablet 05/19/18 Unknown Rx [Augmentin 875-125 Tablet] Fluticasone [Flonase] 1 spray NS QDAY #1 bottle 05/19/18 Unknown Rx Ibuprofen [Motrin] 600 mg PO Q8H PRN #20 tablet 05/19/18 Unknown Rx traMADoL [Ultram] 50 mg PO Q6HR PRN #10 tablet 05/19/18 Unknown Rx Dicyclomine [Bentyl] 40 mg PO QID 3 Days #12 tablet 01/30/19 Unknown Rx Famotidine [Pepcid] 20 mg PO BID 6 Days #12 tablet 01/30/19 Unknown Rx Ondansetron [Zofran ODT TAB] 8 mg PO Q8HR PRN #12 tab.rapdis 01/30/19 Unknown Rx ED Physical Exam - General Limitations: No Limitations - Other Other exam information: General: Awake and alert. No acute distress. Head: Atraumatic, normocephalic. Eyes: EOMI. Pupils are equal and round. Normal sclera and conjunctiva. ENT: Oral mucosa is moist. Normal pharyngeal exam. Neck: Supple. No lymphadenopathy. Pulmonary: No respiratory distress. Clear to auscultation bilaterally. Cardiac: Regular rate and rhythm. Pulses are palpable and equal bilaterally. No lower extremity cyanosis or edema. Skin: Warm and dry. No rashes. Abdomen: Soft, non-tender, non-protuberant. No guarding, rigidity, or rebound. Bowel sounds are normal. No organomegaly or masses noted. Back: Normal alignment. No CVA tenderness. No midline thoracic or lumbar tenderness. Extremities: Tenderness to palpation along the proximal left thigh, left lateral lower leg, and left inguinal area. No lymphadenopathy. No overlying skin color changes. No peripheral edema. No obvious deformity or dislocation. Distal neurovascular and motor/sensory function intact. Ambulatory without assistance. Neurological: Alert and oriented, appropriately interactive, no focal deficits. Psych: Cooperative. Appropriate mood and affect. Speech is evenly metered. Thoughts are logically construed. ED Course Vital Signs 08/28/20 14:55 Temperature 98.3 F Pulse Rate 60 Respiratory 18 Rate Blood Pressure 179/96 [Right] O2 Sat by Pulse 100 Oximetry ED Medical Decision Making - Lab Data Result diagrams: 08/28/20 18:17 08/28/20 18:17 - Medical Decision Making Differential diagnosis including but not limited to: strain, sprain, fracture, contusion, deep vein thrombosis, peripheral vascular disease, arthritis, lumbar radiculopathy On reevaluation, patient is stable. Repeat neurovascular exam remains intact. She is ambulatory without assistance. Labs are unremarkable. Age-adjusted D-dimer minimally elevated; venous duplex ultrasound obtained for further evaluation, was negative for DVT. No clinical evidence to suggest vascular occlusion or infectious process warranting further diagnostic work-up on an emergent basis at this time. Patient will be discharged home to follow-up with primary care provider on an outpatient basis. Patient expressed understanding and is agreeable to plan of care. Strict return precautions provided. Repeat exam is unremarkable and benign. History, exam, diagnostic testing, and current condition do not suggest worrisome pathology to warrant further testing, continued ED treatment, admission, or surgical evaluation at this point. Given the low probability of a significant medical illness, it would be more likely to result in harm than benefit to perform further testing at this stage. Discussed findings, presumptive diagnosis, need for follow-up and specific signs/symptoms that should prompt immediate return to the emergency department. Instructions were explained in detail to the patient in addition to giving written discharge information. Patient expressed understanding and was given the opportunity to ask questions, all of which were satisfactorily answered prior to discharge home. Critical care attestation.: If time is entered above; I have spent that time in minutes in the direct care of this critically ill patient, excluding procedure time. ED Disposition Clinical Impression: Left leg pain Disposition: - TO HOME OR SELFCARE Is pt being admited?: No Does the pt Need Aspirin: No Condition: Stable Instructions: Musculoskeletal Pain Additional Instructions: Take Tylenol every 4 hours and Motrin every 8 hours as needed for pain. Apply heat to affected area as needed for pain. Gradually advance physical activity slowly as tolerated. Follow-up with primary care provider this week. Call tomorrow to schedule an appointment. See referral information below. Return to the emergency department immediately for new or worsening symptoms. Referrals: VIRIDIANA VIRK MD [Staff Physician] - 3-5 Days [facility] [Provider Group] - 3-5 Days Time of Disposition: 20:57
[2020-08-28] MEDS ORDERED: NAPROXEN 500 MG TAB PO ONE (18:30)
[2020-08-28 18:36] LABS: Basophils % (Auto) 0.4 % (0.0-1.8); Eosinophils # (Auto) 0.2 K/mm3 (0.0-0.4); Eosinophils % (Auto) 2.3 % (0.0-4.3); Hematocrit 32.1 % (30.3-42.9); Hemoglobin 10.4 gm/dl (10.1-14.3); Lymphocytes # (Auto) 2.5 K/mm3 (1.2-5.4); Lymphocytes % (Auto) 38.6 % (13.4-35.0); Mean Corpuscular HGB Conc 32 % (30-34); Mean Corpuscular Volume 75 fl (79-97); Monocytes # (Auto) 0.7 K/mm3 (0.0-0.8); Monocytes % (Auto) 10.2 % (0.0-7.3); Platelet Count 328 K/mm3 (140-440); Red Cell Distribution Width 18.3 % (13.2-15.2)
[2020-08-28 18:57] LABS: Alanine Aminotransferase 11 units/L (7-56); Albumin 4.4 g/dL (3.9-5); Blood Urea Nitrogen 7 mg/dL (7-17); Hemolysis Index 2
[2020-08-28 19:08] LABS: BUN/Creatinine Ratio 12
--- NOTE | 2020-08-28 20:49 | Vascular Lab Report ---
DUPLEX DOPPLER LOWER EXTREMITY VEINS, LEFT INDICATION / CLINICAL INFORMATION: left leg pain; elevated D-dimer. TECHNIQUE: Duplex doppler imaging was performed through the veins of the left lower extremity using v enous compression and other maneuvers. COMPARISON: None available. FINDINGS: LEFT COMMON FEMORAL VEIN: Negative. LEFT FEMORAL VEIN: Negative. LEFT POPLITEAL VEIN: Negative. LEFT CALF VEINS: Negative. ADDITIONAL FINDINGS: None. IMPRESSION: 1. No sonographic evidence for DVT in the left lower extremity. Signer Name: Duc Martinez MD Signed: 08/28/2020 8:45 PM Workstation Name: [id number]
[2020-08-28 22:11] VITALS: BP 151/79
== END 2020-08-28 22:14 | disposition home or self-care (01) ==
LOC: ED 13:43
DX: M79.605 Pain in left leg (principal); I10 Essential (primary) hypertension; Z79.899 Other long term (current) drug therapy; Z90.49 Acquired absence of other specified parts of digestive tract; Z98.51 Tubal ligation status
CPT/HCPCS: 36415; 80053; 83735; 85025; 85379